=== PATIENT | female | born 1945 | race Caucasian/White ===

== ENCOUNTER 2016-08-19 13:43 | Emergency (ER) | payer MEDICARE ==
[~2016-08-19] VITALS: Ht 165.1 cm; Wt 60.9 kg
[2016-08-19 13:55] VITALS: BP 140/68; PULSE 61; RESP 15; O2SAT 97
--- NOTE | 2016-08-19 14:26 | ED.REPORT ---
HPI-Trauma Minor / Fall Date of Service Aug 19, 2016 ED Provider: Albina Raghu Patient is a 70 year old female who presents to the ED complaining of R leg/hip pain s/p falling to the ground on concrete. She bent down to address her dog when the rug under her slid. She did a split-like motion and fell to the ground. She has not been able to weight bear since the incident. She denies headache, numbness, or any other symptoms. She is not anticoagulated. Nursing Notes Stated Complaint: GLF,RT LEG INJURY Chief Complaint: Multiple Trauma/Fall Nursing Notes Reviewed: Yes Allergies: Coded Allergies: clonazepam (Verified Allergy, Intermediate, THRUSH, 08/19/16) codeine (Verified Allergy, Intermediate, Hives, 08/19/16) Scheduled PRN Hydrocodone-Acetaminophen 5-325 mg (Hydrocodone-Acetaminophen 5-325 mg) 1 Each Tablet 1 TABLET PO Q4H PRN PRN For Pain General Time Seen by MD: 14:26 Chief Complaint Fall Hx Obtained From: Patient Arrived By: Walk-in Past Medical History Past Medical History Migraines Reports: COPD Ambulatory Status Wheelchair Review of Systems Musculoskeletal: Reports: Extremity pain (R leg) Neurologic: Reports: Problem walking, Denies: Headache, Numbness Complete sys rev & neg: except as marked. Physical Exam Initial Vital Signs Vital Signs (First) Date Time Temp Pulse Resp B/P Pulse Ox O2 Delivery O2 Flow Rate FiO2 08/19/16 13:55 36.7 61 15 140/68 97 Room Air Head / Eyes: Atraumatic, Normocephalic Respiratory: No respiratory distress Extremities: Vascular intact, Neuro intact Skin: Warm, Dry Neurologic: Alert, Oriented, Nonfocal Psychiatric: Mood/affect normal, Behavior normal, Normal thought content General/Constitutional: Awake, Alert, Well appearing, Well developed Neck: Atraumatic Lower Extremity / Pelvis / MS: No deformity, Neurologic intact, Vascular intact No shortening or rotation Femur non-tender Able to lift straight leg off of bed Interpretation & Diagnostics X-Ray Interpretation Xray Interpretation: IMPRESSION: Symmetric joint degeneration. Dictated by: Martin TOURE Interpreted: Jelly Hudson MD on 08/19/2016 at 15:44 Transcribed by: VALERIA on 08/19/2016 at 15:45 X-Ray Ordered: Pelvis, Hip right, Hip left Interpretation / Wet Read by: Interpret - Radiologist Re-Eval/Medical Decision Re-Evaluation/Progress : Time of Eval: 15:59 Re-Evaluation/Progress Note: Disucssed imaging results and rechecked patient. She is able to flex her knee against me without pain. I do not appreciate a rupture at this time. Discussed plan for discharge with a crutch fitting. Patient understands and agrees with plan. All questions addressed at this time. Counseled Regarding: Diagnosis, Lab results, Need for follow-up, When/why to return to ED Discharge & Departure Impression: Primary Impression: Right hamstring muscle strain Encounter type: initial encounter Qualified Code: S76.311A - Strain of muscle, fascia and tendon of the posterior muscle group at thigh level, right thigh, initial encounter Disposition: Home Discharge Condition All VS Reviewed: Yes Condition: Stable (ERASED) Patient Instructions: Muscle Strain (ED) Additional Instructions: Emergency Department evaluation included interview, examination and x-rays of pelvis and right hip. No serious orthopedic injury is identified. This is thought at this point to be a muscle strain. Ice to sore areas, keep ice covered with a towel and remove after 10-15 minutes, ibuprofen as needed for pain, may also use hydrocodone/APAP as needed for pain. Weightbearing as tolerated use crutches when needed. Return to emergency department for severe pain severe swelling and leg. Follow-up with primary care in approximately 7 days Scribe Attestation Portions of this note were transcribed by Stefany Rueda. I, Dr. Montemayor personally performed the history, physical exam and medical decision-making; I reviewed and confirmed the accuracy of the information in the transcribed note. Signed by: Stefany Rueda 08/19/16, 1659 Raghu Montemayor MD Aug 19, 2016 14:26 STEFANY RUEDA Aug 19, 2016 14:36
[2016-08-19] MEDS ORDERED: oxyCODONE-Acetamin 5-325 mg Tablet PO ONE (14:30)
--- NOTE | 2016-08-19 15:45 | DRSVH ---
PROCEDURE: X-RAY PELVIS W/LAT HIP (RT) ([id number]) INDICATIONS: RIGHT hip pain TECHNIQUE: AP pelvis with lateral view(s) of the right hip(s). COMPARISON: None. FINDINGS: Bones: No fractures or dislocations. Pelvic ring appears intact. No suspicious bony lesions. Mild joint narrowing with periarticular osteophyte formation of the hip joints bilaterally. Soft tissues: The visualized bowel gas pattern is normal. No suspicious soft tissue calcifications. IMPRESSION: Symmetric joint degeneration. Dictated by: Martin Mckeon [facility] Interpreted: Jelly Hudson MD on 08/19/2016 at 15:44 Transcribed by: VALERIA on 08/19/2016 at 15:45 Approved by: Jelly Hudson MD, PhD on 08/19/2016 at 17:05
[2016-08-19 16:27] VITALS: BP 129/62; PULSE 54; RESP 16; O2SAT 97
[2016-08-19 16:28] VITALS: BP 140/68; PULSE 61; RESP 15; O2SAT 97
[2016-08-19] MEDS ORDERED: HYDR-4003 PO (16:28)
== END 2016-08-19 16:36 | disposition home or self-care (01) ==
LOC: SED 13:43
DX: S76.311A Strain of muscle, fascia and tendon of the posterior muscle group at thigh level, right thigh, initial encounter (principal); X50.0XXA Overexertion from strenuous movement or load, initial encounter; Y93.89 Activity, other specified; Y92.89 Other specified places as the place of occurrence of the external cause; Y99.8 Other external cause status; J44.9 Chronic obstructive pulmonary disease, unspecified; Z88.5 Allergy status to narcotic agent